=== PATIENT | female | born 1980 | race Caucasian/White ===

== ENCOUNTER 2016-08-09 18:16 | Emergency (ER) | payer MEDICAID ==
--- NOTE | 2016-08-09 18:27 | EDPHY ---
H & P Time Seen by Provider: 08/09/16 18:22 HPI/ROS: 36-year-old female with history of rheumatoid arthritis on Xeljanz presents complaining of cough, sore throat, laryngitis, fevers chills nausea vomiting headache, seems to be worse over the last 1-2 days however feels that it started as a cold approximately 9 days ago. Source: Patient Exam Limitations: No limitations - Personal History LMP (Females 10-55): 15-21 Days Ago Current Tetanus/Diphtheria Vaccine: Yes - Medical/Surgical History Hx Asthma: No Hx Chronic Respiratory Disease: No Hx Diabetes: No Hx Cardiac Disease: No Hx Renal Disease: No Hx Cirrhosis: No Hx Alcoholism: No Hx HIV/AIDS: No Hx Splenectomy or Spleen Trauma: No Other PMH: 5 MONTHS AGO. EAR INFECTIONS. Rheumatoid arthritis - Family History Significant Family History: No pertinent family hx - Social History Smoking Status: Never smoked Alcohol Use: None Drug Use: None - Physical Exam Exam: 36-year-old female alert and oriented no acute distress nontoxic appearance, afebrile Atraumatic normocephalic Neck-supple no meningismus Positive anterior cervical lymphadenopathy bilateral Oropharynx No erythema, no exudate, tolerating own secretions A lungs clear to auscultation bilaterally, coarse cough Abdomen normoactive bowel sounds soft nontender Extremities no cyanosis clubbing or edema Skin no rash Neuro alert and oriented no focal deficits Constitutional: Initial Vital Signs Temperature (C) 37.2 C 08/09/16 18:31 Heart Rate 87 08/09/16 18:31 Respiratory Rate 16 08/09/16 18:31 Blood Pressure 102/69 08/09/16 18:31 O2 Sat (%) 94 08/09/16 18:31 O2 Delivery Mode Room Air Allergies/Adverse Reactions: pamabrom [From Midol] Allergy (Verified 08/09/16 18:37) pyrilamine maleate [From Midol] Allergy (Verified 08/09/16 18:37) Home Medications: Medication Instructions Recorded AZITHROMYCIN [Z-PACK] 250 mg PO DAILY #6 tab 08/09/16 IBUPROFEN 08/09/16 Xeljanz 08/09/16 predniSONE 08/09/16 Medical Decision Making - Diagnostics Imaging Results: Imaging Impressions Chest X-Ray 08/09/16 19:14 Impression: 1. Mild perihilar bronchitis, without a focal infiltrate. 2. Suspect air-filled hiatal hernia. 3. Sequela of old granulomatous disease. ED Course/Re-evaluation: Medical decision making and ER course Patient seen and evaluated for multiple symptoms including sore throat, cough, fatigue, headache, 1 episode of vomiting. Patient is on Xeljanz and prednisone She was given 1 L normal saline, ondansetron 4 mg A DuoNeb for her cough Labs were sent CBC within normal limits Rapid strep negative Evangeline negative Influenza negative CMP within normal limits mild elevation of AST ALT Chest x-ray consistent with bronchitis, hiatal hernia old granulomatous disease Differential diagnosis considered Strep pharyngitis, influenza, mono, bronchitis, URI, pneumonia Impression Bronchitis Plan Azithromycin Follow up with primary care physician - Data Points Laboratory Results: Laboratory Results 08/09/16 19:45 08/09/16 19:45 08/09/16 08/09/16 08/09/16 Unknown 19:45 19:45 WBC RBC Hgb Hct MCV MCH MCHC RDW Plt Count MPV Neut % (Auto) Lymph % (Auto) Evangeline % (Auto) Eos % (Auto) Baso % (Auto) Nucleat RBC Rel Count Absolute Neuts (auto) Absolute Lymphs (auto) Absolute Monos (auto) Absolute Eos (auto) Absolute Basos (auto) Absolute Nucleated RBC Immature Gran % Immature Gran # VBG Lactic Acid Sodium Potassium Chloride Carbon Dioxide Anion Gap BUN Creatinine Estimated GFR Glucose Calcium Total Bilirubin AST ALT Alkaline Phosphatase Total Protein Albumin Monoscreen Influenza A,B Rapid NEGATIVE FOR FLU (NEGATIVE) Group A Strep Screen NEGATIVE (NEGATIVE) Group A Strep DNA Pending 08/09/16 08/09/16 08/09/16 19:45 19:45 19:45 WBC 7.44 10^3/uL 10^3/uL (3.80-9.50) RBC 4.05 10^6/uL L 10^6/uL (4.18-5.33) Hgb 13.7 g/dL g/dL (12.6-16.3) Hct 38.4 % % (38.0-47.0) MCV 94.8 fL fL (81.5-99.8) MCH 33.8 pg pg (27.9-34.1) MCHC 35.7 g/dL g/dL (32.4-36.7) RDW 11.9 % % (11.5-15.2) Plt Count 256 10^3/uL 10^3/uL (150-400) MPV 9.8 fL fL (8.7-11.7) Neut % (Auto) 62.9 % % (39.3-74.2) Lymph % (Auto) 25.5 % % (15.0-45.0) Evangeline % (Auto) 7.1 % % (4.5-13.0) Eos % (Auto) 3.9 % % (0.6-7.6) Baso % (Auto) 0.5 % % (0.3-1.7) Nucleat RBC Rel Count 0.0 % % (0.0-0.2) Absolute Neuts (auto) 4.67 10^3/uL 10^3/uL (1.70-6.50) Absolute Lymphs (auto) 1.90 10^3/uL 10^3/uL (1.00-3.00) Absolute Monos (auto) 0.53 10^3/uL 10^3/uL (0.30-0.80) Absolute Eos (auto) 0.29 10^3/uL 10^3/uL (0.03-0.40) Absolute Basos (auto) 0.04 10^3/uL 10^3/uL (0.02-0.10) Absolute Nucleated RBC 0.00 10^3/uL 10^3/uL (0-0.01) Immature Gran % 0.1 % % (0.0-1.1) Immature Gran # 0.01 10^3/uL 10^3/uL (0.00-0.10) VBG Lactic Acid Sodium 139 mEq/L mEq/L (134-144) Potassium 3.9 mEq/L mEq/L (3.5-5.2) Chloride 104 mEq/L mEq/L (97-110) Carbon Dioxide 22 mEq/l mEq/l (22-31) Anion Gap 13 mEq/L mEq/L (8-16) BUN 21 mg/dL mg/dL (7-23) Creatinine 0.4 mg/dL L mg/dL (0.6-1.0) Estimated GFR > 60 Glucose 86 mg/dL mg/dL (70-100) Calcium 8.8 mg/dL mg/dL (8.5-10.4) Total Bilirubin 0.4 mg/dL mg/dL (0.1-1.4) AST 53 IU/L H IU/L (14-46) ALT 58 IU/L H IU/L (9-52) Alkaline Phosphatase 102 IU/L IU/L (38-126) Total Protein 7.5 g/dL g/dL (6.3-8.2) Albumin 3.4 g/dL L g/dL (3.5-5.0) Monoscreen NEGATIVE (NEGATIVE) Influenza A,B Rapid Group A Strep Screen Group A Strep DNA 08/09/16 19:45 WBC RBC Hgb Hct MCV MCH MCHC RDW Plt Count MPV Neut % (Auto) Lymph % (Auto) Evangeline % (Auto) Eos % (Auto) Baso % (Auto) Nucleat RBC Rel Count Absolute Neuts (auto) Absolute Lymphs (auto) Absolute Monos (auto) Absolute Eos (auto) Absolute Basos (auto) Absolute Nucleated RBC Immature Gran % Immature Gran # VBG Lactic Acid 0.6 mmol/L L mmol/L (0.7-2.1) Sodium Potassium Chloride Carbon Dioxide Anion Gap BUN Creatinine Estimated GFR Glucose Calcium Total Bilirubin AST ALT Alkaline Phosphatase Total Protein Albumin Monoscreen Influenza A,B Rapid Group A Strep Screen Group A Strep DNA Medications Given: Discontinued Medications Acetaminophen (Tylenol) 325 mg PO EDNOW ONE Stop: 08/09/16 19:59 Last Admin: 08/09/16 20:05 Dose: 325 mg Acetaminophen (Tylenol) 650 mg PO EDNOW ONE Stop: 08/09/16 19:59 Last Admin: 08/09/16 20:05 Dose: 650 mg Albuterol/Ipratropium (Duoneb) 3 ml IH EDNOW ONE Stop: 08/09/16 20:00 Last Admin: 08/09/16 20:08 Dose: 3 ml Azithromycin (Zithromax) 500 mg PO EDNOW ONE PRN Reason: Protocol Stop: 08/09/16 21:08 Last Admin: 08/09/16 21:37 Dose: 500 mg Sodium Chloride (Ns) 1,000 mls @ 0 mls/hr IV ONCE ONE PRN Reason: Wide Open Stop: 08/09/16 19:13 Last Admin: 08/09/16 19:45 Dose: 1,000 mls Ketorolac Tromethamine (Toradol) 15 mg IVP EDNOW ONE Stop: 08/09/16 21:08 Last Admin: 08/09/16 21:14 Dose: 15 mg Ondansetron HCl (Zofran) 4 mg IVP EDNOW ONE Stop: 08/09/16 19:13 Last Admin: 08/09/16 19:45 Dose: 4 mg Departure - Departure Disposition: Home, Routine, Self-Care Clinical Impression: Acute bronchitis, Dehydration, Cervical lymphadenopathy Condition: Good Instructions: Dehydration (ED), Lymphadenopathy (ED), Acute Bronchitis (ED) Referrals: BHASKAR HUGO,Doroteo [Primary Care Provider] - As per Instructions Prescriptions: AZITHROMYCIN [Z-PACK] 250 mg PO DAILY #6 tab
[2016-08-09 18:34] VITALS: RESP 16; TEMP 99
[2016-08-09] MEDS ORDERED: ONDANSETRON 4 MG/2 ML VIAL IVP ONE (19:12)
[2016-08-09] MEDS ORDERED: NS 1,000 ML IV ONE ×2 (19:12→20:54)
[2016-08-09 19:50] LABS: % IMMATURE GRANULYOCYTES 0.1 % (0.0-1.1); ABSOLUTE IMMATURE GRANULOCYTES 0.01 10^3/uL (0.00-0.10); ADD DIFF? NO; ADD MORPH? NO; ADD SCAN? NO; ATYPICAL LYMPHOCYTE FLAG 10 (0-99); FRAGMENT RBC FLAG 0 (0-99); HEMATOCRIT 38.4 % (38.0-47.0); HEMOGLOBIN 13.7 g/dL (12.6-16.3); LEFT SHIFT FLG 0 (0-99); LIPEMIA HEMOLYSIS FLAG 90 (0-99); MEAN CELL HEMOGLOBIN 33.8 pg (27.9-34.1); MEAN CELL HEMOGLOBIN CONCENTR. 35.7 g/dL (32.4-36.7); MEAN CELL VOLUME 94.8 fL (81.5-99.8); MEAN PLATELET VOLUME 9.8 fL (8.7-11.7); PLATELET CLUMPS FLAG 0 (0-99); PLATELET COUNT 256 10^3/uL (150-400); RED BLOOD CELL COUNT 4.05 10^6/uL (4.18-5.33); RED CELL DISTRIBUTION WIDTH 11.9 % (11.5-15.2)
[2016-08-09] MEDS ORDERED: ACETAMINOPHEN 325 MG TAB PO ONE ×2 (19:58)
[2016-08-09] MEDS ORDERED: IPRATROPIUM/ALBUTEROL 3 ML DEYVIAL IH ONE (19:59)
[2016-08-09 20:04] LABS: ALANINE AMINOTRANSFERASE 58 IU/L (9-52); ALBUMIN 3.4 g/dL (3.5-5.0); ALKALINE PHOSPHATASE 102 IU/L (38-126); ANION GAP 13 mEq/L (8-16); ASPARTATE AMINOTRANSFERASE 53 IU/L (14-46); BILIRUBIN,TOTAL 0.4 mg/dL (0.1-1.4); CALCIUM 8.8 mg/dL (8.5-10.4); CARBON DIOXIDE 22 mEq/l (22-31); CHLORIDE 104 mEq/L (97-110); CREATININE 0.4 mg/dL (0.6-1.0); GLOMERULAR FILTRATION RATE > 60; GLUCOSE 86 mg/dL (70-100); POTASSIUM 3.9 mEq/L (3.5-5.2); SODIUM 139 mEq/L (134-144); TOTAL PROTEIN 7.5 g/dL (6.3-8.2)
[2016-08-09] MEDS ORDERED: KETOROLAC 30 MG/1 ML SDV IVP ONE (21:07)
[2016-08-09] MEDS ORDERED: AZITHROMYCIN 250 MG TAB PO ONE (21:07)
[2016-08-09 22:23] VITALS: BP 117/71; PULSE 85; O2SAT 96
== END 2016-08-09 21:37 | disposition home or self-care (01) ==
LOC: CED 18:16
DX: J20.9 Acute bronchitis, unspecified (principal); E86.0 Dehydration; R59.1 Generalized enlarged lymph nodes
CPT/HCPCS: 71020-PO; 80053-PO; 83605-PO; 85025-PO; 86308-PO; 87400-PO; 87880-PO; 96374; J1885; J2405

== ENCOUNTER 2018-03-31 13:49 | Emergency (ER) | payer MEDICAID ==
[2018-03-31] MEDS ORDERED: IBUPROFEN 600 MG TAB PO ONE (14:55)
--- NOTE | 2018-03-31 14:58 | EDPHY ---
H & P Time Seen by Provider: 03/31/18 13:59 HPI/ROS: This patient presents with cough and congestion for 2 days, coryza, myalgias, sore throat of moderate intensity and left ear pain. She describes associated fatigue. She has taken ibuprofen with partial improvement with no other exacerbating factors. She reports the ear pain is moderate. She reports hoarse voice associated with her sore throat and cough. Her child was diagnosed with influenza last week. ROS: Constitutional: Fevers. No high fevers or chills HEENT: As per HPI. No sinus pain. No ear drainage. Pulmonary: No pleuritic pain or hemoptysis. Cardiovascular: No complaints GI: No vomiting or diarrhea. : No complaints 7 point review of symptoms is performed and otherwise negative with exception of pertinent positives and negatives listed in HPI and ROS Smoking Status: Never smoked Physical Exam: Physical Exam Vital signs are normal. General: No acute distress HEENT: Nose: Clear discharge bilaterally. No sinus tenderness to percussion. Ears: Right external canal is normal TM is scarred but clear with no erythema left external canals clear left TM is clear with a clear effusion. No erythema. Oropharynx: No erythema or exudates. No dysphonia. No drooling or stridor. She does have a mildly hoarse voice. Eyes: Pupils equal and react to light. Extraocular motions are intact. Neck: Supple with no meningismus. No lymphadenopathy Lungs: Mild expiratory wheeze bilaterally. No rales or rhonchi. Cardiac: Regular rate and rhythm with no murmur gallop or rub Skin: No rash or pallor. Neuro: Alert with no focal deficits noted. Initial differential diagnosis: Influenza, viral bronchitis and laryngitis, serous otitis, doubt pneumonia given current lack of hypoxia fever or other red flag findings. Constitutional: Initial Vital Signs Temperature (C) 36.9 C 03/31/18 14:04 Heart Rate 82 03/31/18 14:04 Respiratory Rate 16 03/31/18 14:04 Blood Pressure 106/72 03/31/18 14:04 O2 Sat (%) 96 03/31/18 14:04 O2 Delivery Mode Room Air Allergies/Adverse Reactions: pamabrom [From Midol] Allergy (Verified 03/31/18 14:04) pyrilamine maleate [From Midol] Allergy (Verified 03/31/18 14:04) Home Medications: Medication Instructions Recorded Albuterol Hfa Anes Only [Proair 2 puffs IH Q4 PRN #1 mdi 03/31/18 Hfa Icu (*)] Fluticasone Nasal [Flonase Nasal 2 sprays NASAL DAILY #1 mdi 03/31/18 Vona (RX)] Oseltamivir Phosphate [Tamiflu 75 75 mg PO BID #10 cap 03/31/18 mg (*)] Rituxan 03/31/18 MDM/Departure - MDM Diagnostics: Rapid influenza is positive for influenza A Medications Given: Discontinued Medications Ibuprofen (Motrin) 600 mg PO EDNOW ONE Stop: 03/31/18 14:56 Last Admin: 03/31/18 15:35 Dose: 600 mg ED Course/Re-evaluation: Discussion: This patient appears clinically well with a positive influenza swab and classic findings for influenza. No findings that suggest sepsis, lower respiratory infection or other complicating factors. We counseled regarding influenza will treat her with Tamiflu, albuterol for accompanying viral bronchitis and Flonase for serous otitis. - Depart Disposition: Home, Routine, Self-Care Clinical Impression: Influenza, Serous otitis media, Viral bronchitis Condition: Good Instructions: Influenza (DC), Serous Otitis Media (ED) Additional Instructions: Diagnosis: 1. Influenza A 2. Serous otitis 2. Viral bronchitis Plan: Tamiflu Ibuprofen for fevers or pain Flonase steroid nasal spray to help with ear swelling Albuterol inhaler for cough, wheeze or shortness of breath Stand Alone Forms: Work Excuse Prescriptions: Albuterol Hfa Anes Only [Proair Hfa Icu (*)] 2 puffs IH Q4 PRN #1 mdi PRN Reason: Wheezing Fluticasone Nasal [Flonase Nasal Vona (RX)] 2 sprays NASAL DAILY #1 mdi Oseltamivir Phosphate [Tamiflu 75 mg (*)] 75 mg PO BID #10 cap Referrals: Patti Valenzuela CNM [Primary Care Provider] - As per Instructions
[2018-03-31 15:40] VITALS: BP 137/85
== END 2018-03-31 15:40 | disposition home or self-care (01) ==
LOC: CED 13:49
DX: J10.1 Influenza due to other identified influenza virus with other respiratory manifestations (principal); H65.92 Unspecified nonsuppurative otitis media, left ear; J20.8 Acute bronchitis due to other specified organisms
CPT/HCPCS: 99284-ER

== ENCOUNTER 2018-04-24 23:44 | Emergency (ER) | payer MEDICAID, OTHER ==
--- NOTE | 2018-04-24 23:58 | EDPHY ---
H & P Time Seen by Provider: 04/24/18 23:54 HPI/ROS: Chief complaint: Loss of voice, persistent cough, unable to sleep secondary cough HPI: This is a 38-year-old female who is been successfully treated for the last 2 years with for took stand for her rheumatoid arthritis. Evidently this was a very rather successful medication was life changing. Previously she had been on a variety of oral medicines as well as intravenous medicines. She became ill approximately 3 weeks ago and was seen here on March 31. Chart has been reviewed. She has been exposed to her daughter who had had influenza. At that time she had had fairly typical prodrome for influenza occlude including myalgias headache cough and body aches. Ultimately she was positive for influenza a and treated with Tamiflu and Proventil. She states she really never got over the illness. The cough itself is persisted and become somewhat productive in that she is bringing up some phlegm. Furthermore there was some bit of a sore throat at the time and that is persisted. In fact she reports that she lost her voice that particular visit and continues to have "laryngitis". Of note is that she was immunized as a child. Unknown if her last to shot was a Tdap. Further, there has been no outbreaks of pertussis in this community. No risk factors for TB such as exposure, travel outside the country, weight loss , night sweats. PERC score 0. ROS: Constitutional - no fevers or chills. Eyes - no discharge, or injection ENT - no earache, change in hearing, difficulty swallowing, sore throat. Respiratory - No Shortness of breath, phlegm, wheezing or pleuritic chest pain. The cough is productive of greenish, bloody phlegm. Musculoskeletal - no joint or muscle pain. Integument - no rashes. Neurological - no headache, numbness, tingling, or paresthesias. No focal motor weakness. Immunological - no swelling or lymphadenopathy A 10 system review of systems was performed and is negative except for the noted findings in the HPI. Smoking Status: Never smoked Physical Exam: Gen: Well developed, well nourished. Nontoxic. afebrile VSS HEENT: Normocephalic. Ears: TMs are clear, though extensively scarred. Evidently she had had PE tubes on 5 occasions. Hearing normal. Eyes: PERRL. No conjunctival injection or pallor. no jaundice. Nose: No nasal discharge. Sinuses are nontender to the frontal area however there is mild right maxillary sinus tenderness Throat: Membranes are moist. Oropharynx is without erythema or exudate. Her voice is hoarse, the oropharynx is clear with pink membranes and no soft tissue swelling however there is tenderness to the larynx itself directly. There is also mild bilateral submandibular lymphadenopathy Neck: Trachea is in the ML. No adenopathy Lungs: Good air entry into both lungs. No rales, rhonchi. There are mild sibling wheezes heard best with forced exhalation. wheezes. No air hunger. No respiratory distress. Skin: Good color, without pallor. There is no diaphoresis. Skin is warm and dry , without diaphoresis. Intact without rashes Constitutional: Initial Vital Signs Temperature (C) 36.3 C 04/24/18 23:55 Heart Rate 79 04/24/18 23:55 Respiratory Rate 20 04/24/18 23:55 Blood Pressure 141/90 H 04/24/18 23:55 O2 Sat (%) 95 04/24/18 23:55 O2 Delivery Mode Room Air Allergies/Adverse Reactions: pamabrom [From Midol] Allergy (Verified 04/24/18 23:54) pyrilamine maleate [From Midol] Allergy (Verified 04/24/18 23:54) Home Medications: Medication Instructions Recorded Albuterol Hfa Anes Only [Proair 2 puffs IH Q4 PRN #1 mdi 03/31/18 Hfa Icu (*)] Rituxan 03/31/18 Azithromycin [Zithromax] 250 mg PO DAILY #4 tab 04/25/18 Benzonatate 200 mg PO TID PRN #28 capsule 04/25/18 Medical Decision Making ED Course/Re-evaluation: Here she was unable to cough to have me see above take a look over her phlegm. There is no signs of respiratory distress or significant wheezing to merit a Proventil treatment. She area has inhaler at home. Chest x-ray: Two view chest. Interpreted by me, contemporaneously. Films viewed by me on the PACS system. Normal mediastinum. Normal lung mcnulty. No effusions. Normal chest. My Plain Film Review: Plain film of soft tissue neck 2 view series. Reviewed and interpreted by me contemporaneously. No blood epiglottis. No hypopharyngeal airspace. No soft tissue swelling of the retropharynx. Normal. She was given doses of Tessalon and Zithromax here Differential Diagnosis: Diagnostic considerations include, but are not limited to, the following: Epiglottitis, URI, sinusitis, pharyngitis, otitis media, pneumonia, allergy, influenza, strep throat. - Data Points Laboratory Results: 04/25/18 00:24 POC Lactic Acid Lb 0.7 mmol/L mmol/L (0.7-2.1) Point of Care Test Results: Blood Gas/Lactic Acid-Venous 04/25/18 00:24 POC Lactic Acid Lb 0.7 mmol/L mmol/L (0.7-2.1) Departure - Departure Disposition: Home, Routine, Self-Care Clinical Impression: Laryngitis Acute bronchitis Qualifiers: Bronchitis organism: unspecified organism Qualified Code(s): J20.9 - Acute bronchitis, unspecified Condition: Good Instructions: Laryngitis (ED) Additional Instructions: For the COUGH: Delsym DM 4 tsp twice a day or Benzonatate (Rx) for the cough, no both Zithromax Rx: We started you on initial dose here Tonight, you're given the benzonatate as a trial. The point is, this is a cough suppressant so as to give you're vocal cords outbreak. If they benzonatate does not work then switch to the Delsym. Continue Proventil inhaler Recheck family doctor in 2 weeks Prescriptions: Azithromycin [Zithromax] 250 mg PO DAILY #4 tab Benzonatate 200 mg PO TID PRN #28 capsule PRN Reason: Cough
[2018-04-25] MEDS ORDERED: BENZONATATE 100 MG CAP PO ONE (00:59)
[2018-04-25] MEDS ORDERED: AZITHROMYCIN 250 MG TAB PO ONE (00:59)
[2018-04-25] MEDS ORDERED: TDAP ADULT 0.5 ML INJ (BOOSTRIX) IM ONE (01:09)
[2018-04-25 01:33] VITALS: BP 138/81
== END 2018-04-25 01:20 | disposition home or self-care (01) ==
LOC: CED 23:44
DX: J20.9 Acute bronchitis, unspecified (principal); J04.0 Acute laryngitis
CPT/HCPCS: 70360-PO; 71046-PO; 83605-ER; 90471-ER; 99284-ER

== ENCOUNTER 2018-05-05 19:11 | Emergency (ER) | payer MEDICAID ==
[2018-05-05] MEDS ORDERED: HYDROCODONE/APAP 5/325 TAB PO ONE (19:30)
--- NOTE | 2018-05-05 19:30 | EDPHY ---
H & P Stated Complaint: L scapular pain radiates down to hand x 2 nights. 9/10 constant pain. Time Seen by Provider: 05/05/18 19:20 HPI/ROS: CHIEF COMPLAINT: Left shoulder pain HISTORY OF PRESENT ILLNESS: The patient is a 38-year-old female with a history of rheumatoid arthritis who takes ibuprofen frequently as well as an injectable anti-inflammatory. She complains of left shoulder blade area pain. It began after sleeping 1 night 2 days ago. She thought that she must have slept wrong however her pain is continued and seems to be worsening. It does hurt more with movement such as lifting her arm upward or rotating laterally. She has not noticed any specific movements that hurt the most. She states that she does have some mild baseline pain but that it is exacerbated by movement. No shortness of breath. No chest pain. She denies any cardiac or pulmonary history. No fevers. No cough. No recent infections. Severity: Moderate Modifying factors: Worsened by movement REVIEW OF SYSTEMS: Constitutional: denies: chills, fever, recent illness, recent injury EENTM: denies: blurred vision, double vision, nose congestion Respiratory: denies: cough, shortness of breath Cardiac: denies: chest pain, irregular heart rate, lightheadedness, palpitations Gastrointestinal/Abdominal: denies: abdominal pain, diarrhea, nausea, vomiting, blood streaked stools Genitourinary: denies: dysuria, frequency, hematuria, pain Musculoskeletal: See HPI Skin: denies: lesions, rash, jaundice, bruising Neurological: denies: headache, numbness, paresthesia, tingling, dizziness, weakness Hematologic/Lymphatic: denies: blood clots, easy bleeding, easy bruising Immunologic/allergic: denies: HIV/AIDS, transplant 10 systems reviewed and negative except as noted EXAM: GENERAL: Well-appearing, well-nourished and in no acute distress. HEAD: Atraumatic, normocephalic. EYES: Pupils equal round and reactive to light, extraocular movements intact, sclera anicteric, conjunctiva are normal. ENT: TMs normal, nares patent, oropharynx clear without exudates. Moist mucous membranes. NECK: No pain or bony tenderness. Normal range of motion, supple without lymphadenopathy or JVD. LUNGS: Breath sounds clear to auscultation bilaterally and equal. No wheezes rales or rhonchi. HEART: Regular rate and rhythm without murmurs, rubs or gallops. ABDOMEN: Soft, nontender, normoactive bowel sounds. No guarding, no rebound. No masses appreciated. BACK: No CVA tenderness, no spinal tenderness, step-offs or deformities EXTREMITIES: Patient complains of pain in her right scapular region. Normal range of motion but with pain. No notable weakness. No paresthesias or numbness. No pulse deficit. No neck pain. NEUROLOGICAL: Cranial nerves II through XII grossly intact. Normal speech, normal gait. 5/5 strength, normal movement in all extremities, normal sensation , normal reflexes PSYCH: Normal mood, normal affect. SKIN: Warm, dry, normal turgor, no visible rashes or lesions. Source: Patient Exam Limitations: No limitations - Personal History LMP (Females 10-55): 1-7 Days Ago Current Tetanus Diphtheria and Acellular Pertussis (TDAP): Yes Tetanus Vaccine Date: 2018 - Medical/Surgical History Hx Asthma: No Hx Chronic Respiratory Disease: No Hx Diabetes: No Hx Cardiac Disease: No Hx Renal Disease: No Hx Cirrhosis: No Hx Alcoholism: No Hx HIV/AIDS: No Hx Splenectomy or Spleen Trauma: No Other PMH: . Rheumatoid arthritis. ear tubes - Family History Significant Family History: No pertinent family hx - Social History Smoking Status: Never smoked Alcohol Use: None Constitutional: Initial Vital Signs Temperature (C) 36.5 C 05/05/18 19:23 Heart Rate 87 05/05/18 19:23 Respiratory Rate 16 05/05/18 19:23 Blood Pressure 120/74 05/05/18 19:23 O2 Sat (%) 96 05/05/18 19:23 O2 Delivery Mode Room Air Allergies/Adverse Reactions: pamabrom [From Midol] Allergy (Verified 05/05/18 19:22) pyrilamine maleate [From Midol] Allergy (Verified 05/05/18 19:22) Home Medications: Medication Instructions Recorded Rituxan 03/31/18 Hydrocodone/APAP 5/325 [[place] 1 - 2 tab PO Q4H PRN #10 tab 05/05/18 5/325 (RX)] Ibuprofen 05/05/18 Medical Decision Making - Diagnostics EKG Interpretation: An EKG obtained and was read and documented in trace view. Please see trace view for full reading and report. Sinus rhythm, no acute ischemic changes Imaging Results: Imaging Impressions Shoulder X-Ray 05/05/18 19:28 Impression: No acute abnormality. If there is further clinical concern regarding the patient's shoulder pain, MR imaging could be considered. Chest X-Ray 05/05/18 19:29 Impression: No acute abnormality. Imaging: Discussed imaging studies w/ call center professional Radiologist ED Course/Re-evaluation: 8:15 p.m. we discussed the x-ray results. Patient is reassured. She is feeling somewhat better after Vicodin. Will place in sling for comfort as needed. Have her follow up with Orthopedics. Discussed indications for returning. We discussed her EKG results which are reassuring. I offered further cardiac testing which she declined. Differential Diagnosis: Partial list of the Differential diagnosis considered include but were not limited to; muscle strain, tendinopathy, and although unlikely based on the history and physical exam, I also considered fracture, dislocation, infection, acute coronary disease, PE, pneumothorax, splenic injury. I discussed these differential diagnoses and the plan with the patient as well as the usual and expected course. The patient understands that the diagnosis is provisional and that in medicine we are not always correct and that further workup is often warranted. Usual and customary warnings were given. All of the patient's questions were answered. The patient was instructed to return to the emergency department should the symptoms at all worsen or return, otherwise to followup with the physician as we discussed. - Data Points Medications Given: Discontinued Medications Hydrocodone Bitart/Acetaminophen ([place] 5/325) 2 tab PO EDNOW ONE Stop: 05/05/18 19:31 Last Admin: 05/05/18 19:33 Dose: 2 tab Departure - Departure Disposition: Home, Routine, Self-Care Clinical Impression: Left shoulder pain Qualifiers: Chronicity: acute Qualified Code(s): M25.512 - Pain in left shoulder Condition: Fair Instructions: Shoulder Pain (ED) Referrals: Patti Valenzuela NP [Primary Care Provider] - As per Instructions Jacky Lopez MD [Medical Doctor] - As per Instructions Prescriptions: Hydrocodone/APAP 5/325 [[place] 5/325 (RX)] 1 - 2 tab PO Q4H PRN #10 tab PRN Reason: Pain, Moderate
--- NOTE | 2018-05-05 19:39 | CPEKG ---
Test Reason : OPEN Blood Pressure : / mmHG Vent. Rate : 076 BPM Atrial Rate : 076 BPM P-R Int : 149 ms QRS Dur : 090 ms QT Int : 387 ms P-R-T Axes : 028 005 031 degrees QTc Int : 436 ms Sinus rhythm Low voltage, precordial leads Confirmed by Parisa Mon ([id number]) on 05/05/2018 7:39:02 PM Referred By: PARISA MON Confirmed By:Parisa Mon
[2018-05-05 20:33] VITALS: BP 120/65
== END 2018-05-05 20:32 | disposition home or self-care (01) ==
LOC: CED 19:11
DX: M25.512 Pain in left shoulder (principal)
CPT/HCPCS: 71046-PO; 73030-PO; 99284-ER; A4565-ER